=== PATIENT | female | born 1980 | race Caucasian/White ===

== ENCOUNTER → 2018-06-12 | Outpatient (CLI) | payer OTHER ==
--- NOTE | 2018-06-12 17:09 | RAD ---
Indications: Left hip and knee pain for one month. No known injury. 3 view left knee study: No acute fracture or dislocation or osteolytic process is evident. There is mild degenerative joint space narrowing and minimal spurring of the medial tibiofemoral joint compartment. Mild degenerative spurring of the patellar femoral joint compartment is seen without joint space narrowing. There is a small left knee joint effusion apparent. IMPRESSION: Mild primary degenerative osteoarthritis of the left knee joint. 2V left hip joint study: No acute fracture or dislocation or osteolytic process evident. There is mild joint space narrowing and spurring of the left hip joint. IMPRESSION: Mild primary degenerative osteoarthritis of the left hip joint. Electronically signed by: Carlitos Avilez MD (06/12/2018 5:05 PM) [id number]
== END | disposition home or self-care (01) ==
LOC: PMG 11:42
PROVIDERS: ATTEND Physician Assistant Medical
DX: M16.12 Unilateral primary osteoarthritis, left hip (principal); M17.12 Unilateral primary osteoarthritis, left knee; M25.462 Effusion, left knee
CPT/HCPCS: 73502; 73562